=== PATIENT | male | born 1950 | race Caucasian/White ===

== ENCOUNTER 2017-09-25 07:00 | Day surgery (SDC) | payer MEDICARE, OTHER ==
[~2017-09-25] VITALS: Ht 175.3 cm; Wt 79.7 kg
[~2017-09-25 07:00] MED LIST: ASPI81CH; ATOR40TA; ATOR40TA PO; CYCL10 PO; Citalopram HBr40 MG PO; Cymbalta30 MG; DEXILANT60 MG PO; Flomax0.4 MG PO; Fludrocortison0.1 MG PO; HINGED KNEE BRACE; NORTHERA100 MG PO; Norco 10-325 T1 EACH PO; Norco 5-325 Ta1 EACH PO; OTEZLA30 MG PO; Omeprazole20 M1 PO; PANT40; POTCHL20ER PO; Percocet 10-321 EACH PO; Prednisone50 MG PO; SERT100; SERT100 PO; Ultram50 MG PO; Zofran Odt4 MG SL
[2017-09-25] MEDS ORDERED: SULF500A (07:40)
[2017-09-25] MEDS ORDERED: ABAT250V (07:40)
[2017-09-25] MEDS ORDERED: CITA10S (07:41)
== END 2017-09-25 09:52 | disposition home or self-care (01) ==
LOC: ORSCSDS 07:00
PROVIDERS: Internal Medicine Gastroenterology
PROC: 0DBK8ZX Excision of Ascending Colon, Via Natural or Artificial Opening Endoscopic, Diagnostic (ICD-10-PCS; principal; 2017-09-25 08:30)
PROC: 0DB88ZX Excision of Small Intestine, Via Natural or Artificial Opening Endoscopic, Diagnostic (ICD-10-PCS; principal; 2017-09-25 08:30)
PROC: 0DBL8ZX Excision of Transverse Colon, Via Natural or Artificial Opening Endoscopic, Diagnostic (ICD-10-PCS; principal; 2017-09-25 08:30)
PROC: 0DBE8ZX Excision of Large Intestine, Via Natural or Artificial Opening Endoscopic, Diagnostic (ICD-10-PCS; principal; 2017-09-25 08:30)
DX: R19.7 Diarrhea, unspecified (principal); R10.9 Unspecified abdominal pain; D12.3 Benign neoplasm of transverse colon; D12.2 Benign neoplasm of ascending colon; Z87.11 Personal history of peptic ulcer disease; K29.70 Gastritis, unspecified, without bleeding; R93.3 Abnormal findings on diagnostic imaging of other parts of digestive tract; Z98.84 Bariatric surgery status; E78.5 Hyperlipidemia, unspecified; Z79.899 Other long term (current) drug therapy
CPT/HCPCS: 88305; 88342; J0330; J1980; J2405; J7120

== ENCOUNTER → 2020-02-13 | Outpatient (CLI) | payer MEDICARE, OTHER ==
[~2020-02-13] MED LIST changes: +ABAT250V; +CITA10S; +SULF500A
== END | disposition home or self-care (01) ==
LOC: LAB SHORT 11:42 → PLD 11:42
DX: D48.5 Neoplasm of uncertain behavior of skin (principal)
CPT/HCPCS: 88305

== ENCOUNTER → 2020-02-23 | Outpatient (CLI) | payer MEDICARE, OTHER | END | disposition home or self-care (01) | LOC: LAB SHORT 12:24 → PLD 12:24 | DX: C44.310 Basal cell carcinoma of skin of unspecified parts of face (principal) | CPT/HCPCS: 88305 ==